=== PATIENT | female | born 1995 | race Caucasian/White ===

== ENCOUNTER → 2018-03-29 | Outpatient (CLI) | payer OTHER ==
[~2018-03-29] MED LIST: NOHOMEMEDICATIONS
[2018-03-30 10:53] LABS: SSA (PROTEIN CONFIRMATORY) NEGATIVE (Negative); URINE CLARITY CLOUDY; URINE COLOR ORANGE
[2018-03-30 10:54] LABS: ACETEST (KETONE CONFIRMATORY) Negative (Negative); ICTOTEST (BILI CONFIRMATORY) Negative (Negative); URINE REDUCING SUBSTANCE NEGATIVE (Negative)
[2018-03-30 10:55] LABS: URINE WBC >25 Many /HPF (0-5)
[2018-03-30 10:57] LABS: BACTERIA 1-9 Few /HPF (None Seen); CASTS None Seen /LPF (None Seen); CRYSTALS None Seen /LPF (None Seen); MUCUS 0-3 Light strn/LPF (None Seen); SQUAMOUS 0-3 Few /LPF (0-3); URINE RBC 3-10 Few /HPF (0-2)
== END ==
LOC: M.LAB 14:34
PROVIDERS: Nurse Practitioner Women's Health
DX: R30.0 Dysuria (principal)